=== PATIENT | male | born 1940 | race Caucasian/White ===

== ENCOUNTER 2019-06-07 10:59 | Day surgery (SDC) | payer OTHER ==
[~2019-06-07] VITALS: Ht 165.1 cm; Wt 66.3 kg
[2019-06-07] MEDS ORDERED: normal saline 1000ml 1,000 ML IV SCH (11:15)
[2019-06-07 11:21] VITALS: BP 108/41
[2019-06-07 11:42] LABS: BASOPHILS # (AUTO) 0.1 X10'3 (0-0.2); BASOPHILS % (AUTO) 1.5 % (0-1); EOSINOPHILS # (AUTO) 1.5 X10'3 (0-0.9); EOSINOPHILS % (AUTO) 15.3 % (0-6); HEMATOCRIT 35.1 % (42.0-52.0); HEMOGLOBIN 11.3 g/dl (14.0-17.9); LYMPHOCYTES # (AUTO) 0.8 X10'3 (1.1-4.8); MEAN CORPUSCULAR HEMOGLOBIN 32.6 PG (27.0-31.0); MEAN CORPUSCULAR HGB CONC 32.3 g/dL (33.0-36.5); MEAN PLATELET VOLUME 8.7 FL (7.4-10.4); MONOCYTES # (AUTO) 1.1 X10'3 (0-0.9); NEUTROPHILS # (AUTO) 5.9 X10'3 (1.8-7.7); NEUTROPHILS % (AUTO) 62.2 % (42-75); PLATELET COUNT 347 X10'3 (140-440); RED BLOOD COUNT 3.47 X10'6 (4.70-6.10); WHITE BLOOD COUNT 9.5 X10'3 (4.5-11.0)
[2019-06-07 11:47] LABS: ALBUMIN 2.3 G/DL (3.4-5.0); ANION GAP 9 (8-16); BLOOD UREA NITROGEN 51 MG/DL (7-18); BUN/CREATININE RATIO 7.2 (5.4-32.0); CALCIUM 8.3 MG/DL (8.5-10.1); CHLORIDE 108 MMOL/L (99-107); CREATININE 7.08 MG/DL (0.60-1.10); GLUCOSE 105 MG/DL (70-104); POTASSIUM 4.8 MMOL/L (3.5-5.1); SODIUM 142 MMOL/L (135-145); TOTAL CARBON DIOXIDE 24.6 MMOL/L (24-32); eGFR 8 ML/MIN
[2019-06-07] MEDS ORDERED: PANT-47 PO (11:49)
[2019-06-07] MEDS ORDERED: METO25TA6 PO (11:49)
[2019-06-07] MEDS ORDERED: FOLI1TAB34 PO (11:49)
[2019-06-07] MEDS ORDERED: LOSA50TA3 PO (11:49)
[2019-06-07] MEDS ORDERED: FLO0.4C PO (11:49)
[2019-06-07] MEDS ORDERED: AMIO200T61 PO (11:49)
[2019-06-07] MEDS ORDERED: ATOR20TA66 PO (11:49)
[2019-06-07] MEDS ORDERED: fentaNYL/PF 50MCG/1 ML 2ML syringe IV PRN (12:30)
[2019-06-07] MEDS ORDERED: LIDOcaine 1%/PF 5ML 10 MG/ML VIAL SQ ONE (12:30)
[2019-06-07] MEDS ORDERED: midazolam 2 mg/2 ml injection IV PRN (12:30)
[2019-06-07] MEDS ORDERED: heparin 1,000 units/ml 10ml inj ICATH ONE (12:30)
[2019-06-07] MEDS ORDERED: heparin 1,000unit/ml 10ml vial 10 ML ONE (13:13)
[2019-06-07] MEDS ORDERED: LIDOcaine 1%/PF 5ML 10 MG/ML VIAL ONE (13:14)
[2019-06-07] MEDS ORDERED: fentaNYL/PF 50MCG/1 ML 2ML syringe ONE (13:14)
[2019-06-07] MEDS ORDERED: midazolam 2 mg/2 ml injection ONE (13:14)
[2019-06-07 13:31] LABS: ANISOCYTOSIS 2+; MICROCYTOSIS 1+; PLATELET ESTIMATE NORMAL; POLYCHROMASIA FEW
[2019-06-07 14:19] VITALS: BP 164/64
[2019-06-07 14:33] VITALS: BP 155/69
[2019-06-07 14:48] VITALS: BP 182/98
[2019-06-07 15:03] VITALS: BP 181/80
== END 2019-06-07 15:26 | disposition home or self-care (01) ==
LOC: SSTAY O 10:59
PROVIDERS: ATTEND Radiology Diagnostic Radiology
DX: I12.0 Hypertensive chronic kidney disease with stage 5 chronic kidney disease or end stage renal disease (principal); N18.6 End stage renal disease; F12.90 Cannabis use, unspecified, uncomplicated; N40.0 Benign prostatic hyperplasia without lower urinary tract symptoms; Z98.890 Other specified postprocedural states; Z90.81 Acquired absence of spleen; Z86.73 Personal history of transient ischemic attack (TIA), and cerebral infarction without residual deficits; Z79.899 Other long term (current) drug therapy; Z87.11 Personal history of peptic ulcer disease
CPT/HCPCS: 36415; 36558; 76937; 77001; 80048; 85025; 85610; 99152; 99153; C1750; C1894; J1644; J2250; J3010; A9270

== ENCOUNTER 2019-06-16 07:54 | Day surgery (SDC) | payer OTHER ==
[~2019-06-16] VITALS: Ht 162.6 cm; Wt 66.0 kg
[~2019-06-16 07:54] MED LIST: AMIO200T61 PO; ATOR20TA66 PO; FLO0.4C PO; FOLI1TAB34 PO; LOSA50TA3 PO; METO25TA6 PO; PANT-47 PO
[2019-06-16] MEDS ORDERED: normal saline 1000ml 1,000 ML IV SCH (08:20)
[2019-06-16] MEDS ORDERED: ZAR2.5T PO (08:49)
[2019-06-16] MEDS ORDERED: KEN0.1O TP (08:49)
[2019-06-16] MEDS ORDERED: METO-395 PO (08:49)
[2019-06-16] MEDS ORDERED: CALC668T PO (08:49)
[2019-06-16] MEDS ORDERED: tPA-cathflo 2 MG/2 ml IV flush ONE (09:20)
[2019-06-16 09:44] VITALS: BP 147/72
[2019-06-16 09:50] LABS: BASOPHILS # (AUTO) 0.2 X10'3 (0-0.2); BASOPHILS % (AUTO) 1.4 % (0-1); EOSINOPHILS # (AUTO) 1.5 X10'3 (0-0.9); EOSINOPHILS % (AUTO) 13.8 % (0-6); HEMATOCRIT 40.9 % (42.0-52.0); LYMPHOCYTES % (AUTO) 9.5 % (21-51); MEAN CORPUSCULAR HEMOGLOBIN 31.6 PG (27.0-31.0); MEAN CORPUSCULAR HGB CONC 31.8 g/dL (33.0-36.5); MEAN CORPUSCULAR VOLUME 99.2 FL (78-98); MEAN PLATELET VOLUME 8.5 FL (7.4-10.4); MONOCYTES % (AUTO) 9.6 % (2-12); NEUTROPHILS % (AUTO) 65.7 % (42-75); PLATELET COUNT 297 X10'3 (140-440); RED BLOOD COUNT 4.12 X10'6 (4.70-6.10); WHITE BLOOD COUNT 10.6 X10'3 (4.5-11.0)
[2019-06-16 09:57] LABS: ALBUMIN 2.5 G/DL (3.4-5.0); ANION GAP 9 (8-16); BLOOD UREA NITROGEN 24 MG/DL (7-18); BUN/CREATININE RATIO 6.6 (5.4-32.0); CALCIUM 8.7 MG/DL (8.5-10.1); CHLORIDE 106 MMOL/L (99-107); CREATININE 3.66 MG/DL (0.60-1.10); GLUCOSE 108 MG/DL (70-104); POTASSIUM 3.5 MMOL/L (3.5-5.1); SODIUM 142 MMOL/L (135-145); TOTAL CARBON DIOXIDE 27.1 MMOL/L (24-32); eGFR 16 ML/MIN
[2019-06-16] MEDS ORDERED: heparin 1,000 UNITS/NS 500ml 500 ML ONE (10:13)
[2019-06-16] MEDS ORDERED: LIDOcaine 1%/PF 5ML 10 MG/ML VIAL ONE (10:13)
[2019-06-16] MEDS ORDERED: fentaNYL/PF 50MCG/1 ML 2ML syringe ONE ×2 (10:13→10:53)
[2019-06-16] MEDS ORDERED: iohexol 300 MG/1 ML 50ml polymer ONE (10:13)
[2019-06-16] MEDS ORDERED: midazolam 2 mg/2 ml injection ONE ×2 (10:13→10:53)
[2019-06-16] MEDS ORDERED: iohexol 300mg/ml 100ml inj. ONE (10:13)
[2019-06-16 11:22] VITALS: BP 147/92
[2019-06-16 11:30] VITALS: BP 163/87
[2019-06-16 11:36] LABS: PLATELET ESTIMATE NORMAL
[2019-06-16 11:37] LABS: ANISOCYTOSIS 2+; ELLIPTOCYTES 1+; POLYCHROMASIA 1+; TARGET CELLS FEW
[2019-06-16 11:45] VITALS: BP 169/65
[2019-06-16 12:00] VITALS: BP 168/68
[2019-06-16 12:15] VITALS: BP 113/54
== END 2019-06-16 13:00 | disposition home or self-care (01) ==
LOC: SSTAY O 07:54
PROVIDERS: ATTEND Radiology Diagnostic Radiology
DX: T82.868A Thrombosis due to vascular prosthetic devices, implants and grafts, initial encounter (principal); N18.9 Chronic kidney disease, unspecified; Z79.899 Other long term (current) drug therapy; Y83.8 Other surgical procedures as the cause of abnormal reaction of the patient, or of later complication, without mention of misadventure at the time of the procedure; Y92.89 Other specified places as the place of occurrence of the external cause
CPT/HCPCS: 36415; 36904; 80048; 85025; 99152; 99153; C1769; C1894; J1644; J2250; J2997; J3010; Q9967

== ENCOUNTER 2019-08-09 09:44 | Emergency (ER) | payer MEDICARE, OTHER ==
[~2019-08-09] VITALS: Ht 162.6 cm; Wt 65.5 kg
[~2019-08-09 09:44] MED LIST changes: +CALC668T PO; +KEN0.1O TP; +METO-395 PO; -METO25TA6 PO; +ZAR2.5T PO
[2019-08-09 11:33] LABS: HEMATOCRIT 39.6 % (42.0-52.0); MEAN CORPUSCULAR HEMOGLOBIN 32.5 PG (27.0-31.0); MEAN CORPUSCULAR HGB CONC 32.7 g/dL (33.0-36.5); MEAN CORPUSCULAR VOLUME 99.5 FL (78-98); MEAN PLATELET VOLUME 9.4 FL (7.4-10.4); PLATELET COUNT 259 X10'3 (140-440); RED BLOOD COUNT 3.98 X10'6 (4.70-6.10); RED CELL DISTRIBUTION WIDTH 20.3 % (11.5-14.5); WHITE BLOOD COUNT 7.5 X10'3 (4.5-11.0)
--- NOTE | 2019-08-09 11:35 | NUR ---
MAXWELL BEE AT BEDSIDE TO ASSESS PATIENT AT THIS TIME.
[2019-08-09 11:47] LABS: ALANINE AMINOTRANSFERASE 19 U/L (12-78); ALBUMIN 2.8 G/DL (3.4-5.0); ALBUMIN/GLOBULIN RATIO 0.5 (1.1-1.5); ALKALINE PHOSPHATASE 159 IU/L (46-116); ANION GAP 9 (8-16); ASPARTATE AMINO TRANSFERASE 23 U/L (10-37); BILIRUBIN,TOTAL 0.6 MG/DL (0.1-1.0); BLOOD UREA NITROGEN 28 MG/DL (7-18); BUN/CREATININE RATIO 6.1 (5.4-32.0); CALCIUM 9.4 MG/DL (8.5-10.1); CHLORIDE 107 MMOL/L (99-107); CREATININE 4.59 MG/DL (0.60-1.10); GLUCOSE 94 MG/DL (70-104); POTASSIUM 3.9 MMOL/L (3.5-5.1); SODIUM 144 MMOL/L (135-145); TOTAL CARBON DIOXIDE 27.8 MMOL/L (24-32); TOTAL PROTEIN 8.2 G/DL (6.4-8.2); eGFR 12 ML/MIN
[2019-08-09 11:50] LABS: MAGNESIUM 2.3 MG/DL (1.5-2.4); TROPONIN I < 0.04 NG/ML (0.0-0.05)
[2019-08-09] MEDS ORDERED: CEPH500C5 PO (12:34)
[2019-08-09 12:44] LABS: TOTAL CELLS COUNTED 100
[2019-08-09 12:52] LABS: ANISOCYTOSIS 2+; GIANT PLATELET FEW; LARGE PLATELETS FEW; PLATELET ESTIMATE NORMAL
[2019-08-09 12:55] LABS: SCHISTOCYTES FEW
[2019-08-09 12:57] LABS: ELLIPTOCYTES 1+; TARGET CELLS FEW
[2019-08-09 12:58] LABS: SPHEROCYTES FEW; TOXIC GRANULATION 1+
[2019-08-09] MEDS ORDERED: TRAM50TA2 PO (12:59)
[2019-08-09 13:01] VITALS: BP 149/81
== END 2019-08-09 13:03 | disposition home or self-care (01) ==
LOC: ER 09:45
DX: T85.848A Pain due to other internal prosthetic devices, implants and grafts, initial encounter (principal); R07.9 Chest pain, unspecified; N18.9 Chronic kidney disease, unspecified; Z99.2 Dependence on renal dialysis; Z79.899 Other long term (current) drug therapy; Y83.8 Other surgical procedures as the cause of abnormal reaction of the patient, or of later complication, without mention of misadventure at the time of the procedure; Y92.89 Other specified places as the place of occurrence of the external cause
CPT/HCPCS: 36415; 71045; 80053; 83735; 84484; 85025; 93005; 99285

== ENCOUNTER 2019-09-22 11:04 | Day surgery (SDC) | payer OTHER ==
[~2019-09-22] VITALS: Ht 162.6 cm; Wt 65.6 kg
[2019-09-22] MEDS ORDERED: normal saline 1000ml 1,000 ML IV SCH ×2 (11:30→11:55)
[2019-09-22] MEDS ORDERED: traMADol 50MG tablet PO ONE (11:40)
[2019-09-22] MEDS ORDERED: TRAM50TA2 PO (11:43)
[2019-09-22 11:53] VITALS: BP 148/101
[2019-09-22] MEDS ORDERED: cefazolin/dext.iso 2gm/100ml 100 ML IV ONE (11:55)
[2019-09-22 12:19] LABS: BASOPHILS # (AUTO) 0.1 X10'3 (0-0.2); EOSINOPHILS % (AUTO) 0.3 % (0-6); HEMATOCRIT 37.2 % (42.0-52.0); HEMOGLOBIN 12.3 g/dl (14.0-17.9); LYMPHOCYTES # (AUTO) 0.7 X10'3 (1.1-4.8); LYMPHOCYTES % (AUTO) 7.1 % (21-51); MEAN CORPUSCULAR HEMOGLOBIN 32.4 PG (27.0-31.0); MEAN CORPUSCULAR VOLUME 98.3 FL (78-98); MEAN PLATELET VOLUME 9.5 FL (7.4-10.4); MONOCYTES # (AUTO) 0.8 X10'3 (0-0.9); MONOCYTES % (AUTO) 7.8 % (2-12); NEUTROPHILS # (AUTO) 8.3 X10'3 (1.8-7.7); NEUTROPHILS % (AUTO) 83.8 % (42-75); PLATELET COUNT 226 X10'3 (140-440); RED BLOOD COUNT 3.79 X10'6 (4.70-6.10); RED CELL DISTRIBUTION WIDTH 18.7 % (11.5-14.5)
[2019-09-22 12:23] LABS: ALBUMIN 2.6 G/DL (3.4-5.0); ANION GAP 10 (8-16); BLOOD UREA NITROGEN 45 MG/DL (7-18); BUN/CREATININE RATIO 7.8 (5.4-32.0); CALCIUM 8.6 MG/DL (8.5-10.1); CHLORIDE 100 MMOL/L (99-107); CREATININE 5.79 MG/DL (0.60-1.10); GLUCOSE 86 MG/DL (70-104); POTASSIUM 3.5 MMOL/L (3.5-5.1); SODIUM 138 MMOL/L (135-145); eGFR 9 ML/MIN
[2019-09-22 12:43] LABS: LARGE PLATELETS FEW; PLATELET ESTIMATE NORMAL; POLYCHROMASIA 1+
[2019-09-22 12:44] LABS: ANISOCYTOSIS 2+; ELLIPTOCYTES FEW; HYPOCHROMASIA 1+; SCHISTOCYTES FEW; TARGET CELLS FEW
[2019-09-22] MEDS ORDERED: heparin 1,000unit/ml 10ml vial 10 ML ONE (16:14)
[2019-09-22] MEDS ORDERED: LIDOcaine 1%/PF 5ML 10 MG/ML VIAL ONE (16:15)
[2019-09-22] MEDS ORDERED: fentaNYL/PF 50MCG/1 ML 2ML syringe ONE (16:15)
[2019-09-22] MEDS ORDERED: midazolam 2 mg/2 ml injection ONE (16:15)
[2019-09-22 16:55] VITALS: BP 149/91
== END 2019-09-22 17:10 | disposition home or self-care (01) ==
LOC: SSTAY O 11:04
PROVIDERS: ATTEND Radiology Diagnostic Radiology
DX: T82.49XA Other complication of vascular dialysis catheter, initial encounter (principal); I12.0 Hypertensive chronic kidney disease with stage 5 chronic kidney disease or end stage renal disease; N18.6 End stage renal disease; N40.0 Benign prostatic hyperplasia without lower urinary tract symptoms; Z79.899 Other long term (current) drug therapy; Y83.8 Other surgical procedures as the cause of abnormal reaction of the patient, or of later complication, without mention of misadventure at the time of the procedure; Y92.89 Other specified places as the place of occurrence of the external cause
CPT/HCPCS: 36415; 36581; 77001; 80048; 85025; C1750; C1769; J1644; J2250; J3010; J7030; A9270

== ENCOUNTER 2019-10-20 08:16 | Day surgery (SDC) | payer OTHER ==
[~2019-10-20] VITALS: Ht 162.6 cm; Wt 63.0 kg
[~2019-10-20 08:16] MED LIST changes: -PANT-47 PO; +TRAM50TA2 PO
[2019-10-20] MEDS ORDERED: normal saline 1000ml 1,000 ML IV SCH (08:40)
[2019-10-20 08:43] VITALS: BP 141/80
[2019-10-20] MEDS ORDERED: CEFT1VIA IM (09:06)
[2019-10-20] MEDS ORDERED: LIDOcaine 1% (10mg/ml) 2ml vial SQ ONE (10:20)
[2019-10-20] MEDS ORDERED: heparin 1,000 UNITS/NS 500ml 500 ML ICATH ONE (10:20)
[2019-10-20] MEDS ORDERED: midazolam 2 mg/2 ml injection ONE (10:28)
[2019-10-20] MEDS ORDERED: fentaNYL/PF 50MCG/1 ML 2ML syringe ONE (10:28)
[2019-10-20] MEDS ORDERED: iohexol 300mg/ml 100ml inj. ONE ×2 (10:28→11:04)
[2019-10-20] MEDS ORDERED: heparin 1,000 UNITS/NS 500ml 500 ML ONE ×2 (10:28→11:04)
[2019-10-20] MEDS ORDERED: LIDOcaine 1%/PF 5ML 10 MG/ML VIAL ONE (10:28)
[2019-10-20 11:42] VITALS: BP 132/69
[2019-10-20 12:00] VITALS: BP 132/71
[2019-10-20 12:15] VITALS: BP 143/70
== END 2019-10-20 12:35 | disposition home or self-care (01) ==
LOC: SSTAY O 08:16
PROVIDERS: ATTEND Radiology Vascular & Interventional Radiology
DX: T82.858A Stenosis of other vascular prosthetic devices, implants and grafts, initial encounter (principal); N40.0 Benign prostatic hyperplasia without lower urinary tract symptoms; I12.9 Hypertensive chronic kidney disease with stage 1 through stage 4 chronic kidney disease, or unspecified chronic kidney disease; N18.9 Chronic kidney disease, unspecified; Z79.899 Other long term (current) drug therapy; Y83.2 Surgical operation with anastomosis, bypass or graft as the cause of abnormal reaction of the patient, or of later complication, without mention of misadventure at the time of the procedure; Y92.89 Other specified places as the place of occurrence of the external cause
CPT/HCPCS: 36902; 99152; 99153; C1725; C1769; C1894; J1644; J2250; J3010; Q9967; 77001